=== PATIENT | male | born 1960 | race Caucasian/White ===

== ENCOUNTER → 2016-05-15 | Outpatient (CLI) | payer MEDICARE, MEDICAID ==
[~2016-05-15] MED LIST: CIPRO500 MG PO; DAYPRO600 M1 PO; FLAGYL500 MG PO; LEVOFLOXACIN500 MG PO; LOMOTIL 0.025 M1 TA1 PO; MOTRIN800 MG PO; ZOFRAN ODT4 MG SL
== END | disposition home or self-care (01) ==
LOC: CARD 07:21
DX: R55 Syncope and collapse (principal); R42 Dizziness and giddiness; R00.2 Palpitations

== ENCOUNTER → 2016-05-29 | Outpatient (CLI) | payer MEDICARE, MEDICAID ==
--- NOTE | ~2016-05-29 | HM ---
[place], [place] HOLTER MONITOR REPORT NAME: [id number] UNIT #: [id number] ROOM: DOCTOR: TESSY GARCIA MD BIRTHDATE: [birth year] DOS: This is a 48-hour Holter monitor study between 05/29/2016 and 05/31/2016. The tracing was processed and the report dictated on 05/31/2016. INDICATIONS: Palpitations. PROCEDURE: The patient was recorded by a Holter technique for 48 hours. FINDINGS: 1. Basic rhythm is normal sinus with an average heart rate of 73 beats per minute, heart rate varied from 51-138 beats per minute in sinus rhythm. 2. Occasional premature ventricular contractions were noted with rare couplets. No ventricular tachycardia was seen. 3. Rare premature atrial contractions were noted with a 3-beat run of supraventricular tachycardia. There was no sustained SVT. No prolonged pauses were seen. The patient reported feeling warm and dizzy while walking. He was in sinus tachycardia with a rate of 117 at that time. IMPRESSION: Essentially normal Holter monitor with premature ventricular contractions and premature atrial contractions. One atrial triplet was noted. TESSY GARCIA MD CM:HOLTER:HOLTER MONITOR REPORT [id number] TESSY GARCIA MD
== END | disposition home or self-care (01) ==
LOC: CARD 09:50
DX: R00.2 Palpitations (principal); R42 Dizziness and giddiness

== ENCOUNTER → 2016-08-06 | Outpatient (CLI) | payer MEDICARE, MEDICAID | END | disposition home or self-care (01) | LOC: RAD 09:13 | DX: M25.511 Pain in right shoulder (principal); M25.512 Pain in left shoulder ==

== ENCOUNTER → 2016-09-10 | Outpatient (CLI) | payer MEDICARE, MEDICAID | END | disposition home or self-care (01) | LOC: RAD 08:35 | DX: M54.2 Cervicalgia (principal); R20.0 Anesthesia of skin ==

== ENCOUNTER → 2017-03-19 | Outpatient (CLI) | payer MEDICARE, MEDICAID ==
[2017-03-19 09:19] LABS: ALBUMIN 3.7 gm/dl (3.1-4.5); ALKALINE PHOSPHATASE 100 U/L (45-117); BUN 10 mg/dl (7-24); CHLORIDE 105 mmol/L (98-107); CHOLESTEROL 167 mg/dL (<200); CREATININE 0.76 mg/dL (0.70-1.30); HDL CHOLESTEROL 43 mg/dl (40-60); LDL CHOLESTEROL 108 mg/dL (9-159); POTASSIUM 4.2 mmol/L (3.5-5.1); SGOT/AST 16 IU/L (3-35); SGPT/ALT 19 U/L (12-78); SODIUM 139 mmol/L (136-145); TOTAL PROTEIN 7.1 gm/dL (6.4-8.2); TRIGLYCERIDES 80 mg/dl (<150); VLDL CHOLESTEROL 16 mg/dL (6-40)
[2017-03-20 08:10] LABS: PROSTATE SPECIFIC AG FREE 0.3 ng/mL
== END ==
LOC: LAB 08:27
PROVIDERS: Family Medicine
DX: N40.0 Benign prostatic hyperplasia without lower urinary tract symptoms (principal); F41.1 Generalized anxiety disorder; M19.90 Unspecified osteoarthritis, unspecified site; E74.00 Glycogen storage disease, unspecified; E55.9 Vitamin D deficiency, unspecified; Z79.899 Other long term (current) drug therapy

== ENCOUNTER → 2017-08-08 | Outpatient (CLI) | payer MEDICARE, MEDICAID ==
[2017-08-14 01:04] LABS: DOPAMINE, URINE 363 ug/L (Undefined); EPINEPHRINE, URINE 24 HR 9 ug/24 hr (0-20)
== END | disposition home or self-care (01) ==
LOC: LAB 08:08
PROVIDERS: Internal Medicine
DX: I10 Essential (primary) hypertension (principal)

== ENCOUNTER → 2017-12-12 | Outpatient (CLI) | payer MEDICARE, MEDICAID | END | disposition home or self-care (01) | LOC: LAB 07:44 | PROVIDERS: Internal Medicine | DX: D35.00 Benign neoplasm of unspecified adrenal gland (principal) ==

== ENCOUNTER → 2018-01-27 | Outpatient (CLI) | payer MEDICARE, MEDICAID ==
[2018-01-27 11:33] LABS: ALBUMIN 3.8 gm/dl (3.1-4.5); ALKALINE PHOSPHATASE 111 U/L (45-117); BUN 14 mg/dl (7-24); CHLORIDE 106 mmol/L (98-107); CHOLESTEROL 199 mg/dL (<200); CREATININE 0.88 mg/dL (0.70-1.30); FREE T4 1.02 ng/dl (0.76-1.46); HDL CHOLESTEROL 30 mg/dl (40-60); LDL CHOLESTEROL 129 mg/dL (9-159); POTASSIUM 3.9 mmol/L (3.5-5.1); SGOT/AST 17 IU/L (3-35); SGPT/ALT 18 U/L (12-78); SODIUM 139 mmol/L (136-145); TOTAL PROTEIN 7.7 gm/dL (6.4-8.2); TRIGLYCERIDES 200 mg/dl (<150); VLDL CHOLESTEROL 40 mg/dL (6-40)
[2018-01-27 12:43] LABS: BASO # 0.1 10*3/uL (0.0-0.1); BASO % 0.7 % (0.0-1.0); EOS # 0.5 10*3/uL (0.0-0.4); EOS % 3.9 % (1.0-4.0); HEMATOCRIT 42.4 % (42.0-52.0); HEMOGLOBIN 14.6 g/dl (14.0-18.0); LYMPH # 3.1 10*3/uL (1.3-4.4); MEAN CELL VOLUME 91.8 fl (80.0-94.0); MEAN CORPUSCULAR HGB 31.6 pg (27.0-31.0); MEAN CORPUSCULAR HGB CONC 34.4 g/dl (33.0-37.0); MEAN PLATELET VOLUME 11.1 fl (9.6-12.3); MONO % 8.5 % (3.0-9.0); NEUT # 7.2 10*3/uL (2.3-7.9); NEUT % 60.4 % (47.0-73.0); PLATELET COUNT AUTOMATED 247 10*3/uL (130-400); RED BLOOD COUNT 4.62 10*6/uL (4.50-5.90); RED CELL DISTRI WIDTH 12.6 % (0-14.5)
[2018-01-27 12:59] LABS: VITAMIN D, 25-HYDROXY 37.1 ng/mL (30-100)
== END | disposition home or self-care (01) ==
LOC: LAB 10:41
PROVIDERS: Internal Medicine
DX: Z13.1 Encounter for screening for diabetes mellitus (principal); Z12.5 Encounter for screening for malignant neoplasm of prostate; Z13.21 Encounter for screening for nutritional disorder; E55.9 Vitamin D deficiency, unspecified; E78.2 Mixed hyperlipidemia; R53.81 Other malaise

== ENCOUNTER → 2018-12-02 | Day surgery (SDC) | payer MEDICARE, MEDICAID ==
[~2018-12-02] VITALS: Ht 182.8 cm; Wt 90.7 kg
[~2018-12-02] MED LIST changes: +ASPIRIN ADULT L81 M1 PO; +BUSPIRONE HCL15 MG PO; +DIVALPROEX SOD500 M1 PO; +DOK COLACE100 MG PO; +IBU800 M1 PO; +PRILOSEC20 M1 PO; +PROPRANOLOL HC160 MG PO; +SERTRALINE HYD100 MG PO; +TAMSULOSIN HCL0.4 MG PO
--- NOTE | ~2018-12-02 | O ---
[place], [place] OPERATIVE NOTE NAME: ALLY LEDEZMA UNIT #: [id number] ROOM: DOCTOR: AZC ORTEGA MD BIRTHDATE: [birth year] DOS: 12/02/2018 GASTROENDOSCOPIC REPORT INDICATIONS: This gentleman has presented with multiple medical issues among which are concerned about colonic screening, nausea, and dyspepsia. ALLERGIES: No known medication. FAMILY HISTORY: Noncontributory. PAST SURGICAL HISTORY: Bilateral hip. PAST MEDICAL HISTORY: Anxiety. SOCIAL HISTORY: Social smoker. Social alcohol consumer. PROCEDURE: Today's procedure part of investigation is panendoscopy and colonoscopy. PREMEDICATION: Propofol. SCOPE: Olympus forward-viewing gastroscope Q10 video. REPORT: After putting the patient in left lateral position and application of lubricant to the scope, the scope was introduced. Thereafter, under direct visualization, advanced through the length of esophagus without difficulty. Esophagus, cervical, thoracic within normal limit. Gastric pouch was entered. Gastritis identified. Antral biopsy obtained. Duodenal bulb, second and third part consistent with duodenitis. Air was suctioned out. The patient was extubated, tolerated the procedure well. IMPRESSION: Gastritis, duodenitis. PLAN AND DISCUSSION: Antral biopsy has been obtained. We are going to start this gentleman on omeprazole. Bearing in mind that the patient is taking ibuprofen 800 mg twice a day for pain management. Furthermore, we are going to proceed with colonoscopy, not only change in bowel habit to the constipation. Also, colonic screening. GASTROENDOSCOPIC REPORT. TECHNIQUE: After putting the patient in left lateral position and application of lubricant to the scope, the scope was introduced. Thereafter, under direct visualization, advanced through the length of colon without difficulty. Base of the cecum explored. Upon source identified, ileocecal valve was defined. Hypertrophic fold sigmoid colon was photographed and biopsied. This appears to be reactive segmental colitis. After biopsy since there was no acute pathology otherwise ascending, transverse, descending colon. Otherwise, the patient extubated, tolerated the procedure well. [place], [place] OPERATIVE NOTE NAME: ALLY LEDEZMA UNIT #: [id number] ROOM: DOCTOR[facility] [birth year] IMPRESSION: Nonspecific hypertrophic folds of sigmoid colon, which appears to be reactive segmental colitis post-biopsy. PLAN: Supportive management. High fiber diet. ACTIVITY: Ad nadine. FOLLOWUP: As outpatient. I thank you very much indeed for your kind referral. RUBIA ORTEGA MD CM:OPRECORD:OPERATIVE NOTE [id number] CAROL ANN ORTEGA MD 12/02/18 1321 interface
[2018-12-02 10:45] VITALS: BP 129/75
[2018-12-02 11:50] VITALS: BP 114/68
[2018-12-02 12:19] VITALS: BP 145/83
== END | disposition home or self-care (01) ==
LOC: SDC 11-26 09:30
DX: K63.89 Other specified diseases of intestine (principal); K52.9 Noninfective gastroenteritis and colitis, unspecified; K29.50 Unspecified chronic gastritis without bleeding; K29.80 Duodenitis without bleeding; F41.9 Anxiety disorder, unspecified; F17.210 Nicotine dependence, cigarettes, uncomplicated; F12.11 Cannabis abuse, in remission; M19.90 Unspecified osteoarthritis, unspecified site; Z96.643 Presence of artificial hip joint, bilateral; Z72.89 Other problems related to lifestyle; Z98.890 Other specified postprocedural states; Z79.899 Other long term (current) drug therapy

== ENCOUNTER → 2018-12-14 | Outpatient (CLI) | payer MEDICARE, MEDICAID ==
[2018-12-14 09:07] LABS: BILIRUBIN NEGATIVE (NEGATIVE); BLOOD 1+ (NEGATIVE); CLARITY CLOUDY (CLEAR); COLOR YELLOW (YELLOW); GLUCOSE NEGATIVE (NEGATIVE); KETONE NEGATIVE (NEGATIVE); LEUKO ESTERASE 3+ (NEGATIVE); NITRITE POSITIVE (NEGATIVE); UROBILINOGEN 0.2 E.U./dl (0.2-1.0)
[2018-12-14 09:47] LABS: BACTERIA 4+; RBC 41-50 rbc/hpf (0-2); WBC TNTC wbc/hpf (0-5)
== END | disposition home or self-care (01) ==
LOC: LAB 07:46
PROVIDERS: Internal Medicine
DX: R30.0 Dysuria (principal); R82.79 Other abnormal findings on microbiological examination of urine

== ENCOUNTER → 2019-02-12 | Outpatient (CLI) | payer MEDICARE, MEDICAID ==
[2019-02-12 08:48] LABS: BASO % 0.1 % (0.0-1.0); HEMATOCRIT 37.9 % (42.0-52.0); HEMOGLOBIN 12.7 g/dl (14.0-18.0); MEAN CELL VOLUME 92.9 fl (80.0-94.0); MEAN CORPUSCULAR HGB 31.1 pg (27.0-31.0); MEAN CORPUSCULAR HGB CONC 33.5 g/dl (33.0-37.0); MEAN PLATELET VOLUME 9.9 fl (9.6-12.3); MONO # 0.7 10*3/uL (0.1-1.0); MONO % 10.3 % (3.0-9.0); NEUT # 4.1 10*3/uL (2.3-7.9); NEUT % 60.2 % (47.0-73.0); PLATELET COUNT AUTOMATED 226 10*3/uL (130-400); RED BLOOD COUNT 4.08 10*6/uL (4.50-5.90); RED CELL DISTRI WIDTH 13.2 % (0-14.5); WHITE BLOOD COUNT 6.7 10*3/uL (4.8-10.8)
[2019-02-12 09:22] LABS: ALBUMIN 3.1 gm/dl (3.1-4.5); BUN 18 mg/dl (7-24); CREATININE 0.82 mg/dL (0.70-1.30); SGOT/AST 11 IU/L (3-35); SGPT/ALT 13 U/L (12-78); TOTAL PROTEIN 6.3 gm/dL (6.4-8.2)
[2019-02-12 10:41] LABS: BILIRUBIN 2+ (NEGATIVE); BLOOD 3+ (NEGATIVE); CLARITY TURBID (CLEAR); COLOR YELLOW (YELLOW); GLUCOSE NEGATIVE (NEGATIVE); KETONE NEGATIVE (NEGATIVE); LEUKO ESTERASE 2+ (NEGATIVE); NITRITE POSITIVE (NEGATIVE); SPECIFIC GRAVITY 1.025 (1.005-1.030)
[2019-02-12 10:50] LABS: ALKALINE PHOSPHATASE 103 U/L (45-117); CHLORIDE 112 mmol/L (98-107); POTASSIUM 4.2 mmol/L (3.5-5.1); SODIUM 142 mmol/L (136-145)
[2019-02-12 14:12] LABS: BACTERIA 4+; WBC 16-20 wbc/hpf (0-5)
== END | disposition home or self-care (01) ==
LOC: LAB 07:54
PROVIDERS: Urology
DX: Z12.5 Encounter for screening for malignant neoplasm of prostate (principal); N39.0 Urinary tract infection, site not specified; D40.0 Neoplasm of uncertain behavior of prostate

== ENCOUNTER → 2020-03-03 | Outpatient (CLI) | payer MEDICARE ==
[2020-03-03 08:35] LABS: BASO % 0.5 % (0.0-1.0); EOS # 0.3 10*3/uL (0.0-0.4); EOS % 4.3 % (1.0-4.0); HEMATOCRIT 44.8 % (42.0-52.0); LYMPH # 2.4 10*3/uL (1.3-4.4); LYMPH % 31.1 % (27.0-41.0); MEAN CELL VOLUME 92.6 fl (80.0-94.0); MEAN CORPUSCULAR HGB 30.6 pg (27.0-31.0); MEAN PLATELET VOLUME 9.9 fl (9.6-12.3); MONO # 0.7 10*3/uL (0.1-1.0); MONO % 8.6 % (3.0-9.0); NEUT # 4.2 10*3/uL (2.3-7.9); NEUT % 55.2 % (47.0-73.0); PLATELET COUNT AUTOMATED 218 10*3/uL (130-400); RED BLOOD COUNT 4.84 10*6/uL (4.50-5.90); RED CELL DISTRI WIDTH 12.9 % (0-14.5); WHITE BLOOD COUNT 7.7 10*3/uL (4.8-10.8)
[2020-03-03 09:07] LABS: ALBUMIN 3.8 gm/dl (3.1-4.5); ALKALINE PHOSPHATASE 105 U/L (45-117); BUN 16 mg/dl (7-24); CHLORIDE 110 mmol/L (98-107); CHOLESTEROL 171 mg/dL (<200); CREATININE 0.82 mg/dL (0.70-1.30); HDL CHOLESTEROL 42 mg/dl (40-60); LDL CHOLESTEROL 111 mg/dL (9-159); POTASSIUM 3.8 mmol/L (3.5-5.1); SGOT/AST 22 IU/L (3-35); SGPT/ALT 19 U/L (12-78); SODIUM 141 mmol/L (136-145); TOTAL PROTEIN 7.5 gm/dL (6.4-8.2); TRIGLYCERIDES 88 mg/dl (<150); VLDL CHOLESTEROL 18 mg/dL (6-40)
[2020-03-03 09:11] LABS: FREE T4 0.96 ng/dl (0.76-1.46)
[2020-03-03 09:37] LABS: VITAMIN D, 25-HYDROXY 56.7 ng/mL (30-100)
== END | disposition home or self-care (01) ==
LOC: LAB 08:12
PROVIDERS: ATTEND Internal Medicine
DX: Z00.00 Encounter for general adult medical examination without abnormal findings (principal); I10 Essential (primary) hypertension; E78.2 Mixed hyperlipidemia; E55.9 Vitamin D deficiency, unspecified; R70.0 Elevated erythrocyte sedimentation rate; Z13.1 Encounter for screening for diabetes mellitus

== ENCOUNTER 2021-01-03 10:22 | Inpatient (IN) | payer OTHER ==
[~2021-01-03] VITALS: Ht 182.8 cm; Wt 84.0 kg
[2021-01-03 10:49] VITALS: BP 154/91
[2021-01-03 12:06] LABS: BASO % 0.2 % (0.0-1.0); EOS # 0.1 10*3/uL (0.0-0.4); EOS % 0.5 % (1.0-4.0); HEMATOCRIT 39.3 % (42.0-52.0); LYMPH # 1.3 10*3/uL (1.3-4.4); LYMPH % 9.2 % (27.0-41.0); MEAN CELL VOLUME 89.7 fl (80.0-94.0); MEAN CORPUSCULAR HGB 31.1 pg (27.0-31.0); MEAN CORPUSCULAR HGB CONC 34.6 g/dl (33.0-37.0); MEAN PLATELET VOLUME 9.4 fl (9.6-12.3); MONO % 7.6 % (3.0-9.0); NEUT # 11.2 10*3/uL (2.3-7.9); NEUT % 82.2 % (47.0-73.0); PLATELET COUNT AUTOMATED 217 10*3/uL (130-400); RED BLOOD COUNT 4.38 10*6/uL (4.50-5.90); RED CELL DISTRI WIDTH 12.7 % (0-14.5); WHITE BLOOD COUNT 13.6 10*3/uL (4.8-10.8)
[2021-01-03 12:22] LABS: ALBUMIN 3.5 gm/dl (3.1-4.5); ALKALINE PHOSPHATASE 91 U/L (45-117); BUN 8 mg/dl (7-24); CHLORIDE 107 mmol/L (98-107); CREATININE 0.69 mg/dL (0.70-1.30); LIPASE 49 U/L (73-393); POTASSIUM 3.7 mmol/L (3.5-5.1); SGOT/AST 12 IU/L (3-35); SGPT/ALT 13 U/L (12-78); SODIUM 138 mmol/L (136-145); TOTAL PROTEIN 7.1 gm/dL (6.4-8.2); TROPONIN I < 0.015 ng/ml (<0.045)
[2021-01-03 12:46] LABS: BILIRUBIN Negative (Negative); BLOOD 2+ (Negative); CLARITY Turbid (Clear); COLOR Yellow (Yellow); GLUCOSE Negative (Negative); KETONE Negative (Negative); LEUKO ESTERASE 3+ (Negative); NITRITE Positive (Negative); PH 6.5 (4.5-8.0); SPECIFIC GRAVITY 1.015 (1.001-1.030)
[2021-01-03 12:56] LABS: BACTERIA 4+; MUCOUS 1+; RBC TNTC rbc/hpf (0-2); WBC TNTC wbc/hpf (0-5)
[2021-01-03 15:35] VITALS: BP 147/79
[2021-01-03 18:00] VITALS: BP 168/93
[2021-01-03] MEDS ORDERED: BUSPAR15 MG PO (18:29)
[2021-01-03] MEDS ORDERED: PROTONIX40 MG PO (18:31)
[2021-01-03] MEDS ORDERED: ZOFRAN4 MG PO (18:33)
[2021-01-03] MEDS ORDERED: DOCUSATE SOD100 MG PO (18:36)
[2021-01-03 20:00] VITALS: BP 175/95
[2021-01-04] VITALS: BP 131/95
[2021-01-04 06:28] LABS: BASO % 0.2 % (0.0-1.0); EOS # 0.3 10*3/uL (0.0-0.4); EOS % 2.4 % (1.0-4.0); HEMATOCRIT 39.3 % (42.0-52.0); LYMPH # 1.9 10*3/uL (1.3-4.4); LYMPH % 15.4 % (27.0-41.0); MEAN CELL VOLUME 90.8 fl (80.0-94.0); MEAN CORPUSCULAR HGB 31.2 pg (27.0-31.0); MEAN CORPUSCULAR HGB CONC 34.4 g/dl (33.0-37.0); MEAN PLATELET VOLUME 9.8 fl (9.6-12.3); MONO # 1.2 10*3/uL (0.1-1.0); MONO % 9.5 % (3.0-9.0); NEUT % 72.3 % (47.0-73.0); PLATELET COUNT AUTOMATED 211 10*3/uL (130-400); RED BLOOD COUNT 4.33 10*6/uL (4.50-5.90); RED CELL DISTRI WIDTH 12.8 % (0-14.5); WHITE BLOOD COUNT 12.5 10*3/uL (4.8-10.8)
[2021-01-04 08:00] VITALS: BP 144/86
[2021-01-04 12:00] VITALS: BP 132/78
[2021-01-04 16:00] VITALS: BP 130/80
[2021-01-04 20:00] VITALS: BP 136/89
[2021-01-05] VITALS: BP 135/90
[2021-01-05 08:00] VITALS: BP 142/90
[2021-01-05] MEDS ORDERED: AUGMENTIN 875-875 MG PO (09:45)
[2021-01-05] MEDS ORDERED: AVPAK AZITHROM250 M1 PO (09:45)
[2021-01-05 12:00] VITALS: BP 142/90
== END 2021-01-05 14:29 | disposition home or self-care (01) | DRG 727 ==
LOC: ED 10:22 → 4E 15:06 → EDHOLD 15:06 → 4E 18:06
PROVIDERS: Emergency Medicine; ADMIT Internal Medicine; ATTEND Internal Medicine
DX: N45.3 Epididymo-orchitis (principal); N18.6 End stage renal disease; N39.0 Urinary tract infection, site not specified; I12.0 Hypertensive chronic kidney disease with stage 5 chronic kidney disease or end stage renal disease; F41.1 Generalized anxiety disorder; N43.3 Hydrocele, unspecified; B96.20 Unspecified Escherichia coli [E. coli] as the cause of diseases classified elsewhere; K52.9 Noninfective gastroenteritis and colitis, unspecified; K59.09 Other constipation; J44.9 Chronic obstructive pulmonary disease, unspecified; I48.91 Unspecified atrial fibrillation; E11.22 Type 2 diabetes mellitus with diabetic chronic kidney disease; N41.9 Inflammatory disease of prostate, unspecified; N20.0 Calculus of kidney; Q76.49 Other congenital malformations of spine, not associated with scoliosis

== ENCOUNTER → 2021-01-17 | Outpatient (CLI) | payer OTHER ==
[~2021-01-17] MED LIST changes: +AUGMENTIN 875-875 MG PO; +AVPAK AZITHROM250 M1 PO; +BUSPAR15 MG PO; +DOCUSATE SOD100 MG PO; +PROTONIX40 MG PO; +ZOFRAN4 MG PO
== END | disposition home or self-care (01) ==
LOC: CT 09:00
PROVIDERS: ATTEND Nurse Practitioner
DX: K40.90 Unilateral inguinal hernia, without obstruction or gangrene, not specified as recurrent (principal); N43.3 Hydrocele, unspecified; K42.1 Umbilical hernia with gangrene; K63.89 Other specified diseases of intestine

== ENCOUNTER → 2021-02-01 | Outpatient (CLI) | payer OTHER | END | disposition home or self-care (01) | LOC: LAB 08:23 | PROVIDERS: ATTEND Urology | DX: D40.0 Neoplasm of uncertain behavior of prostate (principal); R53.83 Other fatigue ==

== ENCOUNTER → 2021-04-23 | Outpatient (CLI) | payer MEDICARE ==
[2021-04-23 10:12] LABS: CHLORIDE 112 mmol/L (98-107); SODIUM 143 mmol/L (136-145)
[2021-04-23 10:19] LABS: BUN 9 mg/dl (7-24); CREATININE 0.67 mg/dL (0.70-1.30)
== END | disposition home or self-care (01) ==
LOC: LAB 08:51
PROVIDERS: ATTEND Nurse Practitioner
DX: R63.4 Abnormal weight loss (principal); R10.9 Unspecified abdominal pain

== ENCOUNTER → 2021-04-24 | Outpatient (CLI) | payer MEDICARE | END | disposition home or self-care (01) | LOC: CT 04-23 08:49 | PROVIDERS: ATTEND Nurse Practitioner | DX: K42.9 Umbilical hernia without obstruction or gangrene (principal); K46.9 Unspecified abdominal hernia without obstruction or gangrene ==

== ENCOUNTER → 2021-05-03 | Outpatient (CLI) | payer MEDICARE | END | disposition home or self-care (01) | LOC: LAB 08:13 | PROVIDERS: ATTEND Nurse Practitioner | DX: R30.0 Dysuria (principal) ==

== ENCOUNTER → 2022-06-06 | Outpatient (CLI) | payer MEDICARE ==
[2022-06-06 08:43] LABS: BASO % 0.4 % (0.0-1.0); EOS # 0.3 10*3/uL (0.0-0.4); EOS % 4.9 % (1.0-4.0); HEMATOCRIT 41.6 % (42.0-52.0); LYMPH # 1.9 10*3/uL (1.3-4.4); LYMPH % 34.4 % (27.0-41.0); MEAN CELL VOLUME 92.9 fl (80.0-94.0); MEAN CORPUSCULAR HGB 31.3 pg (27.0-31.0); MEAN CORPUSCULAR HGB CONC 33.7 g/dl (33.0-37.0); MEAN PLATELET VOLUME 9.8 fl (9.6-12.3); MONO # 0.5 10*3/uL (0.1-1.0); MONO % 9.5 % (3.0-9.0); NEUT # 2.8 10*3/uL (2.3-7.9); NEUT % 50.6 % (47.0-73.0); PLATELET COUNT AUTOMATED 182 10*3/uL (130-400); RED BLOOD COUNT 4.48 10*6/uL (4.50-5.90); RED CELL DISTRI WIDTH 12.8 % (0-14.5); WHITE BLOOD COUNT 5.6 10*3/uL (4.8-10.8)
[2022-06-06 09:02] LABS: ALKALINE PHOSPHATASE 90 U/L (46-116); BUN 13 mg/dl (9-23); CHLORIDE 108 mmol/L (98-107); CHOLESTEROL 154 mg/dL (<200); FREE T4 0.96 ng/dl (0.89-1.76); LDL CHOLESTEROL 105 mg/dL (9-159); POTASSIUM 4.2 mmol/L (3.4-5.1); SGPT/ALT 15 U/L (10-49); THYROID STIM HORMONE (HS) 2.512 uIU/ml (0.550-4.780); TOTAL PROTEIN 6.6 gm/dL (6.0-8.0); TRIGLYCERIDES 36 mg/dl (<150)
[2022-06-06 09:54] LABS: VITAMIN D, 25-HYDROXY 34.4 ng/mL (30-100)
== END | disposition home or self-care (01) ==
LOC: LAB 07:56
PROVIDERS: ATTEND Internal Medicine
DX: I10 Essential (primary) hypertension (principal); E55.9 Vitamin D deficiency, unspecified; Z13.0 Encounter for screening for diseases of the blood and blood-forming organs and certain disorders involving the immune mechanism; Z13.1 Encounter for screening for diabetes mellitus; Z13.21 Encounter for screening for nutritional disorder; Z13.228 Encounter for screening for other metabolic disorders; Z13.29 Encounter for screening for other suspected endocrine disorder; Z13.89 Encounter for screening for other disorder; Z13.820 Encounter for screening for osteoporosis; Z13.6 Encounter for screening for cardiovascular disorders; Z12.5 Encounter for screening for malignant neoplasm of prostate

== ENCOUNTER 2023-03-13 13:46 | Emergency (ER) | payer OTHER, MEDICARE ==
[~2023-03-13] VITALS: Ht 182.8 cm; Wt 95.3 kg
== END 2023-03-13 16:00 | disposition home or self-care (01) ==
LOC: ED 13:46
DX: M25.552 Pain in left hip (principal); M25.551 Pain in right hip; M25.561 Pain in right knee; I95.9 Hypotension, unspecified; M19.90 Unspecified osteoarthritis, unspecified site; Z98.890 Other specified postprocedural states

== ENCOUNTER 2023-03-15 09:29 | Emergency (ER) | payer OTHER, MEDICARE ==
[~2023-03-15] VITALS: Ht 182.8 cm; Wt 95.3 kg
[2023-03-15 10:12] LABS: BASO % 0.5 % (0.0-1.0); EOS # 0.2 10*3/uL (0.0-0.4); EOS % 3.6 % (1.0-4.0); LYMPH # 1.7 10*3/uL (1.3-4.4); LYMPH % 24.8 % (27.0-41.0); MEAN CELL VOLUME 91.7 fl (80.0-94.0); MEAN CORPUSCULAR HGB 32.3 pg (27.0-31.0); MEAN CORPUSCULAR HGB CONC 35.2 g/dl (33.0-37.0); MEAN PLATELET VOLUME 9.9 fl (9.6-12.3); MONO # 0.5 10*3/uL (0.1-1.0); MONO % 6.9 % (3.0-9.0); NEUT # 4.2 10*3/uL (2.3-7.9); NEUT % 63.4 % (47.0-73.0); PLATELET COUNT AUTOMATED 212 10*3/uL (130-400); RED BLOOD COUNT 4.58 10*6/uL (4.50-5.90); RED CELL DISTRI WIDTH 12.6 % (0-14.5); WHITE BLOOD COUNT 6.7 10*3/uL (4.8-10.8)
[2023-03-15 10:36] LABS: ALKALINE PHOSPHATASE 97 U/L (46-116); BUN 13 mg/dl (9-23); CHLORIDE 112 mmol/L (98-107); SGPT/ALT 16 U/L (5-49); TOTAL PROTEIN 6.7 gm/dL (6.0-8.0)
[2023-03-15] MEDS ORDERED: MELOXICAM15 MG PO (11:04)
[2023-03-15] MEDS ORDERED: CYCLOBENZAPRINE5 M3 PO (11:04)
[2023-03-15 11:15] LABS: BILIRUBIN Negative (Negative); BLOOD Negative (Negative); CLARITY Clear (Clear); COLOR Yellow (Yellow); GLUCOSE Negative (Negative); KETONE Negative (Negative); LEUKO ESTERASE Negative (Negative); NITRITE Negative (Negative)
[2023-03-15 11:26] LABS: RBC 0-2 rbc/hpf (0-2); WBC 0-2 wbc/hpf (0-5)
== END 2023-03-15 11:11 | disposition home or self-care (01) ==
LOC: ED 09:29
PROVIDERS: Emergency Medicine
DX: M54.50 Low back pain, unspecified (principal); R10.9 Unspecified abdominal pain; M19.90 Unspecified osteoarthritis, unspecified site; Z98.890 Other specified postprocedural states; V89.2XXA Person injured in unspecified motor-vehicle accident, traffic, initial encounter; Y93.89 Activity, other specified; Y92.410 Unspecified street and highway as the place of occurrence of the external cause; Y99.8 Other external cause status